=== PATIENT | female | born 1975 | race Hispanic/Latino ===

== ENCOUNTER → 2022-08-16 | Day surgery (SDC) | payer SELFPAY ==
[~2022-08-16] MED LIST: DEXAMETHASONE SOD PHOS INJ 4 MG/ML SDV ONE; EPHEDRINE SULFATE INJ 50 MG/ML VIAL ONE; FENTANYL CITRATE/PF 100MCG/2 ML INJ ONE; HYDROCODON-ACE1 EA11 PO; HYDROCODONE/APAP 5MG-325MG TAB ONE; HYDROMORPHONE 1MG/1ML INJ ONE; KETAMINE HCL INJ 50 MG/ML 10 ML VIAL ONE; LIDOCAINE HCL 2% LOCAL INJ 5 ML SDV VIAL INJ ONE; LISINOPRIL-HCT1 EAC1; MIDAZOLAM HCL 2 MG/2 ML VIAL ONE; Morphine 10mg syringe 10 MG/ML INJ ONE; ONDANSETRON HCL INJ 2MG/ML 2ML 2 MG/ML VIAL ONE; POVIDONE IODINE 0.05% 0.05 % ML PO ONE; PROPOFOL IV EMULSION 10 MG/ML 20 ML VIAL ONE; SEVOFLURANE INHAL SOLN 250 ML PEN BTL ONE
[2022-08-16 14:40] VITALS: BP 139/82
== END | disposition home or self-care (01) ==
LOC: OR 06:05
PROVIDERS: ATTEND Plastic Surgery
DX: Z41.1 Encounter for cosmetic surgery (principal); L98.7 Excessive and redundant skin and subcutaneous tissue; I10 Essential (primary) hypertension; Z01.810 Encounter for preprocedural cardiovascular examination; Z79.899 Other long term (current) drug therapy
CPT/HCPCS: 15836; 81025; 93005; C1713; J0690; J1100; J1170; J2001; J2250; J2270; J2405; J2704; J3010